=== PATIENT | female | born 1990 ===

== ENCOUNTER 2022-03-18 18:30 | Emergency (ER) | payer MEDICAID ==
[~2022-03-18] VITALS: Ht 167.6 cm; Wt 94.5 kg
[2022-03-18] MEDS ORDERED: ALBUTEROL SULFATE 2.5 MG/0.5 ML NEB SOLUTION NEB ONE (22:15)
[2022-03-18] MEDS ORDERED: PredniSONE 20 MG TABLET PO ONE (22:15)
[2022-03-18] MEDS ORDERED: IPRATROPIUM BROMIDE 0.5 MG/2.5 ML NEB SOLUTION NEB ONE (22:15)
[2022-03-18] MEDS ORDERED: CLIN300C58 PO (22:59)
[2022-03-18] MEDS ORDERED: PRED-554 PO (22:59)
[2022-03-18 23:00] VITALS: BP 132/74
[2022-03-18] MEDS ORDERED: BENZ-70 PO (23:24)
== END 2022-03-18 23:00 | disposition home or self-care (01) ==
LOC: EMS 18:39
DX: S30.861A Insect bite (nonvenomous) of abdominal wall, initial encounter (principal); L03.311 Cellulitis of abdominal wall; J45.909 Unspecified asthma, uncomplicated; W57.XXXA Bitten or stung by nonvenomous insect and other nonvenomous arthropods, initial encounter; Y93.89 Activity, other specified; Y92.89 Other specified places as the place of occurrence of the external cause; Y99.8 Other external cause status
CPT/HCPCS: 99283; 94640; J7512